=== PATIENT | female | born 1985 | race Caucasian/White ===

== ENCOUNTER 2018-09-19 10:30 | Emergency (ER) | payer BC ==
[~2018-09-19 10:30] MED LIST: ISOVUE-370 76%-LOCM 1 ML ONE
[2018-09-19 11:48] LABS: #Basophils 0.1 thou/uL (0.0-0.2); #Eosinphils 0.2 thou/uL (0.0-0.7); #Lymphocytes 2.1 thou/uL (1.20-3.40); #Monocytes 1.5 thou/uL (0.11-0.59); #Neutrophils 11.9 thou/uL (1.40-6.50); %Basophils 0.5 % (0.0-1.0); %Eosinophils 1.5 % (0.0-10.0); %Lymphocytes 13.5 % (21.0-51.0); %Monocytes 9.7 % (0.0-10.0); %Neutrophils 74.9 % (42.0-75.0); Hemoglobin 10.9 g/dL (12.0-16.0); Mean Corpuscular HGB CONC 32.7 g/dL (32.0-36.0); Mean Corpuscular Hemoglobin 31.3 pg (27.0-31.0); Mean Corpuscular Volume 95.8 fL (78.0-98.0); Mean Platelet Volume 6.3 fL (7.4-10.4); Platelet Count 404 thou/uL (130-400); Red Blood Cell (RBC) Count 3.48 mill/uL (4.20-5.40); White Blood Cell (WBC) Count 15.9 thou/uL (4.8-10.8)
[2018-09-19] MEDS ORDERED: Morphine 4 MG/ML VIAL ONE ×3 (11:57→15:40)
[2018-09-19] MEDS ORDERED: Ondansetron PF 4 MG/2 ML Vial ONE ×2 (11:58→12:00)
[2018-09-19 12:13] LABS: ALT (SGPT) 15 U/L (8-55); AST (SGOT) 14 U/L (5-34); Albumin 3.4 g/dL (3.5-5.0); Alkaline Phosphatase 49 U/L (40-150); Anion Gap 12 mmol/L (10-20); BUN (Urea Nitrogen) 11 mg/dL (7.0-18.7); Bilirubin, Total 0.3 mg/dL (0.2-1.2); Calc. Creatinine Clearance 0 mL/min (70-130); Calcium 9.4 mg/dL (7.8-10.44); Carbon Dioxide 25 mmol/L (22-29); Chloride 104 mmol/L (98-107); Estimated GFR-MDRD 83; Globulin 3.4 g/dL (2.4-3.5); Glucose 89 mg/dL (70-105); Potassium 3.9 mmol/L (3.5-5.1); Protein, Total 6.8 g/dL (6.0-8.3); Sodium 137 mmol/L (136-145)
[2018-09-19 13:24] LABS: BHCG - Serum Negative (NEGATIVE); Pregs Control Background? CLEAR/WHITE (CLR/WHITE); Pregs Control Bar Appear? YES (CONTROL BAR)
[2018-09-19] MEDS ORDERED: Lidocaine 1% w/Epinephrine 1:100K 20 ML VIAL ONE (14:26)
[2018-09-19] MEDS ORDERED: Bupivacaine 0.5% 10 ML VIAL ONE (14:26)
--- NOTE | 2018-09-19 14:36 | CT ---
CT PELVIS WITH CONTRAST; HISTORY: Swelling, redness, and pain in the right buttock region for the past week. COMPARISON: None. TECHNIQUE: Multiple contiguous axial images were obtained in a CT of the pelvis with contrast. Sagittal and cor onal reformats were performed. FINDINGS: There is a bilobed fluid collection with surrounding stranding changes to the right of midline, in th e perirectal soft tissues. This measures approximately 4.8 x 3.8 x 5.1 cm in size and is consistent with a perirectal abscess. No extension of this fluid collection to the left of midline is seen. The visualized intrapelvic structures are unremarkable. The osseous structures are unremarkable. IMPRESSION: Right perirectal abscess. POS: SAMANTHA
--- NOTE | 2018-09-19 17:38 | HP ---
HISTORY OF PRESENT ILLNESS: Elenita Phelan is a 32-year-old female, followed by Dr. Madan Rashid for the past week for perirectal abscess. She has been on antibiotics. They were prepared to drain in Dr. Madan Rashid' office, but were uncomfortable and canceled this. She now presents to the emergency room with a large area of cellulitis around her buttocks and a fluctuant area. CAT scan confirms this. I have been asked to see her by the Emergency Room physician. She is afebrile. ALLERGIES: NONE. PHYSICAL EXAMINATION: Exam reveals that she has a large right perirectal abscess with an 8-cm area of cellulitis, fluctuance, induration, and tenderness. ASSESSMENT: Perirectal abscess. PLAN: Incision and drainage at the bedside. She consents. Job ID: [id number]
--- NOTE | 2018-09-19 20:55 | OP ---
DATE OF PROCEDURE: 09/19/2018 PREOPERATIVE DIAGNOSIS: Large perirectal abscess, right. POSTOPERATIVE DIAGNOSIS: Large perirectal abscess, right. PROCEDURE PERFORMED: Incision and drainage of large perirectal abscess. ANESTHESIA: 0.5% Marcaine, 30 mL mixed with 1% Xylocaine with epinephrine, 30 mL. DESCRIPTION OF PROCEDURE: With the patient bedside in the emergency room in the decubitus position, her right perianal area prepared with alcohol and local anesthetic mixture infiltrated into the skin and subcutaneous tissue. An incision was made in the skin and subcutaneous tissue and a deep large perirectal abscess drained a copious purulent foul-smelling material. An elliptical incision was made approximately 4 cm to facilitate drainage. It was irrigated with saline solution. Gauze dressing packed the wound. The patient tolerated the procedure well. Job ID: [id number]
== END 2018-09-19 17:00 | disposition home or self-care (01) ==
LOC: ERS 10:30
DX: K61.1 Rectal abscess (principal); F41.9 Anxiety disorder, unspecified; F32.9 Major depressive disorder, single episode, unspecified; Z79.899 Other long term (current) drug therapy
CPT/HCPCS: 46040; 72193; 80053; 84703; 85025; 96361; 96374; 96375; 96376; J2001; J2270; J2405; J3490; Q9966

== ENCOUNTER 2018-11-20 16:02 | Outpatient (CLI) | payer BC ==
[2018-11-20 16:54] LABS: #Basophils 0.1 thou/uL (0.0-0.2); #Eosinphils 0.2 thou/uL (0.0-0.7); #Lymphocytes 1.5 thou/uL (1.20-3.40); #Monocytes 0.5 thou/uL (0.11-0.59); #Neutrophils 8.5 thou/uL (1.40-6.50); %Basophils 0.5 % (0.0-1.0); %Eosinophils 1.6 % (0.0-10.0); %Lymphocytes 13.6 % (21.0-51.0); %Monocytes 4.7 % (0.0-10.0); %Neutrophils 79.5 % (42.0-75.0); Hemoglobin 11.7 g/dL (12.0-16.0); Mean Corpuscular HGB CONC 33.6 g/dL (32.0-36.0); Mean Corpuscular Hemoglobin 31.6 pg (27.0-31.0); Mean Corpuscular Volume 94.2 fL (78.0-98.0); Mean Platelet Volume 6.7 fL (7.4-10.4); Platelet Count 368 thou/uL (130-400); RBC Distribution Width 12.6 % (11.5-14.5); Red Blood Cell (RBC) Count 3.71 mill/uL (4.20-5.40); White Blood Cell (WBC) Count 10.7 thou/uL (4.8-10.8)
== END 2018-11-20 16:03 | disposition home or self-care (01) ==
LOC: LABBT 16:02
PROVIDERS: ATTEND Surgery
DX: Z01.812 Encounter for preprocedural laboratory examination (principal); K61.1 Rectal abscess
CPT/HCPCS: 85025

== ENCOUNTER 2018-11-24 05:59 | Day surgery (SDC) | payer BC ==
[2018-11-20 17:00] VITALS: BMI 48.3
[2018-11-24] MEDS ORDERED: Sodium Chloride 0.9% 100 ML ONE (06:18)
[2018-11-24] MEDS ORDERED: cefOXitin 2 GM VIAL ONE (06:18)
[2018-11-24] MEDS ORDERED: Midazolam HCl 2 mg/2 ml Vial ONE ×2 (06:40→09:26)
[2018-11-24] MEDS ORDERED: Lidocaine 2% PF 5 ML VIAL ONE (06:45)
[2018-11-24] MEDS ORDERED: Bupivacaine HCl 0.5%/Epinephrine 1:200,000/PF 30 ml Vial ONE (06:45)
[2018-11-24] MEDS ORDERED: Bacitracin Zinc Ointment 30 gm TUBE ONE (06:45)
[2018-11-24] MEDS ORDERED: Fentanyl 100 MCG/2 ML VIAL ONE ×2 (07:22→08:41)
[2018-11-24] MEDS ORDERED: Morphine 4 MG/ML VIAL ONE (08:56)
[2018-11-24] MEDS ORDERED: Morphine 2 MG/ML SYRINGE ONE (09:11)
[2018-11-24] MEDS ORDERED: HYDROmorphone 0.5 MG/0.5 ML SYRINGE ONE (09:19)
--- NOTE | 2018-11-24 12:11 | OP ---
DATE OF PROCEDURE: 11/24/2018 PREOPERATIVE DIAGNOSIS: Perirectal abscess. PROCEDURE PERFORMED: Incision and drainage of perirectal abscess with anal fistulotomy. INDICATIONS: This is a 32-year-old female who about 2 months ago had I and D of a right lateral perirectal abscess. She developed a painful mass anterior close to the labia on the right side. FINDINGS: About a 4 cm abscess cavity with a fistulous tract that tracked back to the original I and D site. DESCRIPTION OF PROCEDURE: After informed consent was obtained, the patient was taken to the operating room and given general endotracheal anesthesia. She was placed in lithotomy position. Her perianal area was prepped and draped in usual fashion. Local anesthesia infiltrated subcutaneously and deep as a 4-quadrant anal block. A bivalve anal retractor was inserted. There was a hypertrophied anal papilla anterior, could not define any internal openings. An elliptical incision was performed as close as possible to the anal verge with release of yellow thick purulent fluid, this was sent for culture. The cavity was opened further and thoroughly irrigated. Hemostasis achieved with electrocautery. Then, I could start to see a little bit of blood coming out of a punctate opening on the inner aspect of her previous I and D site. A probe was then gently inserted and tracked back to this abscess cavity. Then, using electrocautery, the skin and subcu was divided, opening up the fistulous tract. Again, hemostasis achieved with electrocautery. Wound thoroughly irrigated. Gelfoam impregnated with bacitracin was inserted within the anal canal and the wound was packed with dry gauze. A sterile bandage applied. The patient tolerated the procedure well, transferred to Recovery in good condition. Sponge and needle count verified correct x2. Job ID: [id number]
[2018-11-24] MEDS ORDERED: Lidocaine 1% PF 5 ML VIAL ONE (13:59)
[2018-11-24] MEDS ORDERED: Glycopyrrolate 0.2 MG/ML 5 ML SYRINGE ONE (13:59)
[2018-11-24] MEDS ORDERED: PROPOFOL 200 MG/20 ML VIAL ONE (13:59)
[2018-11-24] MEDS ORDERED: Ondansetron PF 4 MG/2 ML Vial ONE (13:59)
[2018-11-24] MEDS ORDERED: Rocuronium Bromide 10 MG/ML (10ML VIAL) ONE (13:59)
== END 2018-11-24 11:15 | disposition home or self-care (01) ==
LOC: SDC 05:59
PROVIDERS: ATTEND Surgery
PROC: 0D9P7ZZ Drainage of Rectum, Via Natural or Artificial Opening (ICD-10-PCS; principal; 2018-11-24)
DX: K61.1 Rectal abscess (principal); K62.89 Other specified diseases of anus and rectum; F41.9 Anxiety disorder, unspecified; K21.9 Gastro-esophageal reflux disease without esophagitis; E66.9 Obesity, unspecified; Z68.42 Body mass index [BMI] 45.0-49.9, adult; Z79.899 Other long term (current) drug therapy; Z88.2 Allergy status to sulfonamides; Z88.5 Allergy status to narcotic agent
CPT/HCPCS: 87070; 87076; 87077; 87186; 87205; J0670; J0694; J1170; J2001; J2250; J2270; J2405; J2704; J3010; J3490

== ENCOUNTER 2019-01-23 10:13 | Outpatient (CLI) | payer BC ==
--- NOTE | 2019-01-23 10:33 | RAD ---
XR Chest Pa Lat STANDARD HISTORY: Cough COMPARISON: 01/06/2013 FINDINGS: The heart size is normal. The lungs are well expanded without focal areas of consolidation, pneumothorax or pleural effusions. IMPRESSION: No radiographic evidence of acute cardiopulmonary process.
== END 2019-01-23 10:14 | disposition home or self-care (01) ==
LOC: BICRAD 10:13
PROVIDERS: ATTEND Specialist
DX: R05 Cough (principal)
CPT/HCPCS: 71046